=== PATIENT | male | born 1950 | race Two or more races ===

== ENCOUNTER 2023-08-31 11:56 | Inpatient (IN) | payer OTHER ==
[2023-08-31 13:27] LABS: HEMATOCRIT 26.2 % (35.4-49); HEMOGLOBIN 8.7 GM/dL (11.7-16.9); MCH 30.6 pg (25.7-33.7); MCHC 33.3 g/dl (32.0-35.9); MEAN CELL VOLUME 91.9 fl (80-96); MEAN PLT VOLUME 7.2 fl (7.5-11.1); PLATELET COUNT 166 10^3/uL (134-434); RBC 2.85 M/mm3 (4.00-5.60); RDW 17.1 % (11.9-15.9)
[2023-08-31 13:29] LABS: INR 1.26 (0.83-1.09); PROTHROMBIN TIME (PATIENT) 14.1 SEC (9.7-13.0)
[2023-08-31 13:32] LABS: ACTIVATED PTT 32.7 SECONDS (25.2-36.5); WHITE BLOOD COUNT 1.8 K/mm3 (4.0-10.0)
[2023-08-31 13:34] LABS: VENOUS BASE EXCESS 1.4 mmol/L (-2-2); VENOUS O2 SATURATION 19.2 % (70-80); VENOUS PCO2 45.2 mmHg (38-52); VENOUS PH 7.387 (7.310-7.410)
[2023-08-31 13:40] LABS: CHLORIDE 102 mmol/L (98-107); POTASSIUM 4.3 mmol/L (3.5-5.1); SODIUM 137 mmol/L (136-145)
[2023-08-31 13:43] LABS: CALCIUM 8.9 mg/dL (8.5-10.1)
[2023-08-31 13:44] LABS: ALBUMIN 2.5 g/dl (3.4-5.0); ANION GAP 6 mmol/L (4-13); CO2 29 mmol/L (21-32); GLUCOSE,RANDOM 90 mg/dL (74-106)
[2023-08-31 13:47] LABS: CREATININE 5.8 mg/dL (0.55-1.3); SGOT/AST 59 U/L (15-37); SGPT/ALT 23 U/L (13-61)
[2023-08-31 13:48] LABS: BILIRUBIN,TOTAL 0.8 mg/dL (0.2-1)
[2023-08-31 13:49] LABS: TOT PROT 6.1 g/dl (6.4-8.2)
[2023-08-31 13:50] LABS: ALK PHOS 348 U/L (45-117)
[2023-08-31] MEDS ORDERED: PIPERACILLIN/TAZOB 4.5 GM 4.5 GM/100 ML BAG IVPB ONE (14:19)
[2023-08-31] MEDS ORDERED: ACETAMINOPHEN INJECTION 100 ML IVPB ONE (14:19)
[2023-08-31 14:34] LABS: ANISOCYTOSIS 0; MACROCYTOSIS 0
[2023-08-31] MEDS ORDERED: SODIUM CHLORIDE 250 ML IV PRN (16:04)
[2023-08-31] MEDS: SODIUM CHLORIDE 0.9% 500 ML INFUS.BAG IV ONE (16:41)
[2023-08-31] MEDS: AZITHROMYCIN IVPB 500 MG in DEXTROSE 5%-WATER - 250 ML IVPB ONE (16:41)
[2023-08-31] MEDS: PIPERACILLIN/TAZOB 4.5 GM 4.5 GM in DEXTROSE 5%-WATER 100 ML IVPB ONE (16:48)
[2023-08-31] MEDS: ACETAMINOPHEN 1000 MG/100 ML BAG IVPB ONE (16:48)
[2023-08-31] MEDS ORDERED: AZITHROMYCIN IVPB 500 MG/250 ML BAG IVPB ONE (17:26)
[2023-08-31] MEDS ORDERED: VANCOMYCIN 1 GRAM (PRE-DOCKED) 1,000 MG/250 ML BAG IVPB ONE (17:27)
[2023-08-31] MEDS ORDERED: NOREPINEPHRINE 0.9 % NACL 8 MG/250 ML BAG IVPB ONE (17:35)
[2023-08-31] MEDS ORDERED: HYDROCORTISONE SOD SUCCINATE 100 MG/2 ML VIAL ONE (17:47)
[2023-08-31] MEDS: NOREPINEPHRINE 0.9 % NACL 8 MG/250 ML BAG IVPB SCH (17:57)
[2023-08-31] MEDS: VANCOMYCIN/WATER 1250 MG 1,250 MG/250 ML BAG IVPB ONE (17:59)
[2023-08-31] MEDS: HYDROCORTISONE SOD SUCCINATE 100 MG/2 ML VIAL IVPB ONE (18:04)
[2023-08-31] MEDS: NOREPINEPHRINE BITARTRATE 16,000 MCG in SODIUM CHLORIDE 484 ML IV SCH (19:23)
[2023-08-31] MEDS: NOREPINEPHRINE BITARTRATE 4,000 MCG in DEXTROSE 5%-WATER - 496 ML IV SCH ×2 (19:39→19:40)
[2023-08-31] MEDS ORDERED: LIDOCAINE HCL 2% JELLY 6 ML TP ONE (21:19)
[2023-09-01] MEDS: HEPARIN NA (PORCINE) 5,000 UNITS/ML 1ML VIAL SQ SCH ×2 (00:09→05:59)
[2023-09-01] MEDS: PIPERACILLIN/TAZOB 2.25 GM 2.25 GM in DEXTROSE 5%-WATER - 50 ML IVPB SCH (02:00)
[2023-09-01] MEDS ORDERED: NOREPINEPHRINE BITARTRATE 4,000 MCG in DEXTROSE 5%-WATER - 496 ML IV SCH (04:00)
[2023-09-01] MEDS: HYDROCORTISONE SOD SUCCINATE 100 MG/2 ML VIAL IVPB SCH (04:22)
[2023-09-01 07:14] LABS: PHOSPHOROUS 4.2 mg/dL (2.5-4.9)
[2023-09-01] MEDS: PANTOPRAZOLE SODIUM 40 MG VIAL IVPUSH ONE (08:29)
[2023-09-01 09:15] LABS: HEMATOCRIT 24.4 % (35.4-49); HEMOGLOBIN 8.2 GM/dL (11.7-16.9); MCH 30.6 pg (25.7-33.7); MCHC 33.7 g/dl (32.0-35.9); PLATELET COUNT 158 10^3/uL (134-434); RBC 2.68 M/mm3 (4.00-5.60); RDW 16.9 % (11.9-15.9); WHITE BLOOD COUNT 8.7 K/mm3 (4.0-10.0)
[2023-09-01 09:29] LABS: POTASSIUM 5.3 mmol/L (3.5-5.1)
[2023-09-01 09:32] LABS: ALBUMIN 2.1 g/dl (3.4-5.0); CALCIUM 8.5 mg/dL (8.5-10.1)
[2023-09-01 09:33] LABS: BLOOD UREA NITROGEN 42.8 mg/dL (7-18)
[2023-09-01 09:35] LABS: CREATININE 6.7 mg/dL (0.55-1.3)
[2023-09-01 09:37] LABS: BILIRUBIN,TOTAL 1.1 mg/dL (0.2-1); TOT PROT 5.6 g/dl (6.4-8.2)
[2023-09-01] MEDS: PANTOPRAZOLE SODIUM 40 MG VIAL IVPUSH SCH (09:38)
[2023-09-01] MEDS: PIPERACILLIN/TAZOB 4.5 GM 4.5 GM in DEXTROSE 5%-WATER 100 ML IVPB SCH ×2 (09:38→21:30)
[2023-09-01] MEDS: MUPIROCIN 2% TOPICAL OINTMENT FOR DECOLONIZATION NS SCH (09:39)
[2023-09-01] MEDS ORDERED: POLYETHYLENE GLYCOL (HEALTHYLAX) 3350 17 GM PACKET PO SCH (10:00)
[2023-09-01] MEDS ORDERED: PIPERACILLIN/TAZOB 2.25 GM 2.25 GM in DEXTROSE 5%-WATER - 50 ML IVPB SCH (10:00)
[2023-09-01] MEDS ORDERED: PANTOPRAZOLE 40 MG TABLET PO SCH (10:00)
[2023-09-01] MEDS: EPOETIN ALFA-EPBX 10,000 UNIT/ML VIAL IVPUSH ONE (12:12)
[2023-09-01] MEDS: LACTATED RINGERS SOLUTION 1000 ML INFUS.BAG IV ONE (14:54)
[2023-09-01] MEDS: VANCOMYCIN/WATER FOR INJ (PEG) 1,000 MG/200 ML BAG IVPB ONE (17:56)
[2023-09-01] MEDS ORDERED: VANCOMYCIN/WATER FOR INJ (PEG) 1,000 MG/200 ML BAG IVPB SCH (18:00)
[2023-09-01] MEDS ORDERED: HYDROCORTISONE SOD SUCCINATE 100 MG/2 ML VIAL IVPB SCH (21:00)
[2023-09-01] MEDS: CHLORHEXIDINE GLUCONATE 4% CLEANSER FOR DECOLONIZATION TP SCH (21:30)
[2023-09-01] MEDS ORDERED: CHLORHEXIDINE GLUCONATE 4% CLEANSER FOR DECOLONIZATION TP SCH (22:00)
[2023-09-02 08:23] LABS: BASO % 0.5 % (0-2.0); EOS % 7.6 % (0-4.5); HEMOGLOBIN 8.5 GM/dL (11.7-16.9); LYMPH % 7.8 % (8-40); MCH 31.5 pg (25.7-33.7); MEAN CELL VOLUME 92.5 fl (80-96); MEAN PLT VOLUME 8.1 fl (7.5-11.1); MONO % 8.6 % (3.8-10.2); NEUT % 75.5 % (42.8-82.8); PLATELET COUNT 173 10^3/uL (134-434); RDW 17.3 % (11.9-15.9); WHITE BLOOD COUNT 9.3 K/mm3 (4.0-10.0)
[2023-09-02 08:32] LABS: POTASSIUM 4.1 mmol/L (3.5-5.1)
[2023-09-02 08:45] LABS: BLOOD UREA NITROGEN 27.9 mg/dL (7-18)
[2023-09-02 08:47] LABS: ALBUMIN 2.1 g/dl (3.4-5.0); CALCIUM 8.4 mg/dL (8.5-10.1); PHOSPHOROUS 3.6 mg/dL (2.5-4.9); TOT PROT 5.7 g/dl (6.4-8.2)
[2023-09-02 08:49] LABS: CREATININE 4.3 mg/dL (0.55-1.3)
[2023-09-02 08:51] LABS: BILIRUBIN,TOTAL 0.9 mg/dL (0.2-1)
[2023-09-02] MEDS ORDERED: MUPIROCIN 2% TOPICAL OINTMENT FOR DECOLONIZATION NS SCH (10:00)
[2023-09-02] MEDS: ACETAMINOPHEN 325 MG TABLET (FP) PO PRN (10:01)
[2023-09-02] MEDS: APIXABAN 2.5 MG TABLET PO SCH (10:17)
[2023-09-02] MEDS: SODIUM CHLORIDE 1,000 ML IV SCH (10:18)
[2023-09-02 10:33] LABS: URIC ACID 2.6 mg/dL (2.6-7.2)
[2023-09-02] MEDS ORDERED: VANCOMYCIN/WATER FOR INJ (PEG) 1,000 MG/200 ML BAG IVPB SCH (18:00)
[2023-09-03 07:29] LABS: HEMATOCRIT 24.6 % (35.4-49); HEMOGLOBIN 8.1 GM/dL (11.7-16.9); MCH 30.7 pg (25.7-33.7); MCHC 32.9 g/dl (32.0-35.9); MEAN CELL VOLUME 93.2 fl (80-96); MEAN PLT VOLUME 7.7 fl (7.5-11.1); PLATELET COUNT 135 10^3/uL (134-434); RBC 2.64 M/mm3 (4.00-5.60); RDW 17.1 % (11.9-15.9); WHITE BLOOD COUNT 6.2 K/mm3 (4.0-10.0)
[2023-09-03 07:43] LABS: POTASSIUM 3.9 mmol/L (3.5-5.1)
[2023-09-03 07:58] LABS: CALCIUM 8.3 mg/dL (8.5-10.1)
[2023-09-03 07:59] LABS: BLOOD UREA NITROGEN 35.2 mg/dL (7-18)
[2023-09-03 08:02] LABS: CREATININE 5.2 mg/dL (0.55-1.3); PHOSPHOROUS 3.1 mg/dL (2.5-4.9); URIC ACID 3.5 mg/dL (2.6-7.2)
[2023-09-03] MEDS: MIDODRINE HCL 5 MG TABLET PO ONE (11:04)
[2023-09-03] MEDS: MIDODRINE HCL 5 MG TABLET PO SCH (15:59)
[2023-09-04 07:04] LABS: BASO % 0.8 % (0-2.0); EOS % 17.2 % (0-4.5); HEMATOCRIT 24.3 % (35.4-49); HEMOGLOBIN 8.1 GM/dL (11.7-16.9); LYMPH % 16.9 % (8-40); MCH 30.8 pg (25.7-33.7); MCHC 33.4 g/dl (32.0-35.9); MEAN CELL VOLUME 92.2 fl (80-96); MEAN PLT VOLUME 7.9 fl (7.5-11.1); MONO % 8.9 % (3.8-10.2); NEUT % 56.2 % (42.8-82.8); PLATELET COUNT 119 10^3/uL (134-434); RBC 2.64 M/mm3 (4.00-5.60); RDW 17.5 % (11.9-15.9); WHITE BLOOD COUNT 4.2 K/mm3 (4.0-10.0)
[2023-09-04 07:16] LABS: POTASSIUM 4.2 mmol/L (3.5-5.1)
[2023-09-04 07:22] LABS: BLOOD UREA NITROGEN 39.1 mg/dL (7-18); CALCIUM 8.1 mg/dL (8.5-10.1); MAGNESIUM 1.9 mg/dL (1.8-2.4)
[2023-09-04] MEDS ORDERED: SODIUM CHLORIDE 250 ML IV PRN (09:45)
[2023-09-04] MEDS: ALBUMIN HUMAN 25% 12.5 GM/50 ML VIAL IV SCH (10:30)
[2023-09-04] MEDS: EPOETIN ALFA-EPBX 4,000 UNIT/ML VIAL IVPUSH ONE (11:02)
[2023-09-04 13:41] VITALS: BMI 22.2
[2023-09-04] MEDS: SODIUM CHLORIDE 1,000 ML IV SCH (17:39)
[2023-09-04] MEDS: MIDODRINE HCL 5 MG TABLET PO SCH (18:33)
[2023-09-04] MEDS: PIPERACILLIN/TAZOB 4.5 GM 4.5 GM in DEXTROSE 5%-WATER 100 ML IVPB SCH (21:11)
[2023-09-04] MEDS: APIXABAN 2.5 MG TABLET PO SCH (21:11)
[2023-09-05] MEDS: ACETAMINOPHEN 325 MG TABLET (FP) PO PRN (00:48)
[2023-09-05] MEDS ORDERED: PIPERACILLIN/TAZOB 4.5 GM 4.5 GM in DEXTROSE 5%-WATER 100 ML IVPB ONE (22:00)
[2023-09-05] MEDS: PIPERACILLIN/TAZOB 4.5 GM 4.5 GM in DEXTROSE 5%-WATER 100 ML IVPB SCH (22:36)
[2023-09-06] MEDS ORDERED: SODIUM CHLORIDE 250 ML IV PRN (07:02)
[2023-09-06] MEDS ORDERED: ALBUMIN HUMAN 25% 12.5 GM/50 ML VIAL IVPB SCH (07:15)
[2023-09-06 09:41] LABS: BASO % 1.4 % (0-2.0); EOS % 14.3 % (0-4.5); HEMATOCRIT 25.2 % (35.4-49); HEMOGLOBIN 8.4 GM/dL (11.7-16.9); LYMPH % 14.6 % (8-40); MCH 30.5 pg (25.7-33.7); MCHC 33.1 g/dl (32.0-35.9); MEAN PLT VOLUME 7.9 fl (7.5-11.1); NEUT % 58.7 % (42.8-82.8); PLATELET COUNT 97 10^3/uL (134-434); RBC 2.74 M/mm3 (4.00-5.60); RDW 17.7 % (11.9-15.9); WHITE BLOOD COUNT 6.2 K/mm3 (4.0-10.0)
[2023-09-06] MEDS: EPOETIN ALFA-EPBX 4,000 UNIT/ML VIAL SQ ONE (11:23)
[2023-09-06 19:38] VITALS: BP 132/41; PULSE 84; RESP 18; TEMP 99.3
== END 2023-09-06 21:43 | DRG 720 ==
LOC: JER 11:56 → JERBED 16:13 → JICU 21:51 → J5S 09-04 17:15
PROVIDERS: ADMIT Internal Medicine; ATTEND Internal Medicine
PROC: 05HD33Z Insertion of Infusion Device into Right Cephalic Vein, Percutaneous Approach (ICD-10-PCS; principal; 2023-09-03)
PROC: 5A1D70Z Performance of Urinary Filtration, Intermittent, Less than 6 Hours Per Day (ICD-10-PCS; 2023-09-03)
PROC: 5A1D70Z Performance of Urinary Filtration, Intermittent, Less than 6 Hours Per Day (ICD-10-PCS; 2023-09-03)
PROC: 5A1D70Z Performance of Urinary Filtration, Intermittent, Less than 6 Hours Per Day (ICD-10-PCS; 2023-09-03)
DX: A41.89 Other specified sepsis (principal); R65.21 Severe sepsis with septic shock; E03.9 Hypothyroidism, unspecified; J18.9 Pneumonia, unspecified organism; I27.20 Pulmonary hypertension, unspecified; I48.91 Unspecified atrial fibrillation; I13.2 Hypertensive heart and chronic kidney disease with heart failure and with stage 5 chronic kidney disease, or end stage renal disease; N18.6 End stage renal disease; I50.32 Chronic diastolic (congestive) heart failure; Z99.2 Dependence on renal dialysis; K56.690 Other partial intestinal obstruction; M10.9 Gout, unspecified; E27.49 Other adrenocortical insufficiency; I73.89 Other specified peripheral vascular diseases; K40.90 Unilateral inguinal hernia, without obstruction or gangrene, not specified as recurrent; R64 Cachexia; Z68.22 Body mass index [BMI] 22.0-22.9, adult; D63.1 Anemia in chronic kidney disease; R79.89 Other specified abnormal findings of blood chemistry; E44.0 Moderate protein-calorie malnutrition; I24.89 Other forms of acute ischemic heart disease; Z85.528 Personal history of other malignant neoplasm of kidney
CPT/HCPCS: 0241U-QW; 36415; 71045-TC-FY; 74176-TC; 80048; 80053; 82308; 82550; 82803; 82977; 83605; 83735; 84100; 84443; 84484; 84550; 85025; 85027; 85610; 85730; 86140; 86704; 86803; 86850; 86900; 86901; 87040; 87081; 87324; 87340; 87449; 87517; 93005; 93010; 93306-TC; 93971-TC; 94010; 97116-GP; 97161-GP; 99291; G0480; J0131; J1644; P9047; Q5106

== ENCOUNTER 2023-11-20 13:54 | Emergency (ER) | payer OTHER ==
[2023-11-20] MEDS ORDERED: ACETAMINOPHEN INJECTION 100 ML IVPB ONE (14:38)
[2023-11-20] MEDS ORDERED: VANCOMYCIN 1,000 MG in DEXTROSE 5%-WATER - 250 ML IVPB ONE (14:41)
[2023-11-20] MEDS ORDERED: CEFEPIME HCL 1 GM VIAL (RESTRICTED TO ID) IVPB ONE (14:42)
[2023-11-20 14:46] VITALS: RESP 45; TEMP 104.1; BMI 23.5
[2023-11-20] MEDS: ACETAMINOPHEN 1000 MG/100 ML BAG IVPB ONE (15:01)
[2023-11-20] MEDS: SODIUM CHLORIDE 0.9% 1000 ML INFUS.BAG IV STA (15:01)
[2023-11-20 15:07] LABS: VENOUS BASE EXCESS -5.9 mmol/L (-2-2); VENOUS O2 SATURATION 86.1 % (70-80); VENOUS PCO2 55.9 mmHg (38-52); VENOUS PH 7.214 (7.310-7.410)
[2023-11-20 15:16] LABS: INR 1.23 (0.83-1.09); PROTHROMBIN TIME (PATIENT) 14.1 SEC (9.7-13.0)
[2023-11-20 15:19] LABS: ACTIVATED PTT 30.2 SECONDS (25.2-36.5)
[2023-11-20 15:27] LABS: CHLORIDE 99 mmol/L (98-107); HEMATOCRIT 26.2 % (35.4-49); HEMOGLOBIN 8.4 GM/dL (11.7-16.9); MCHC 32.2 g/dl (32.0-35.9); MEAN CELL VOLUME 96.3 fl (80-96); MEAN PLT VOLUME 9.1 fl (7.5-11.1); PLATELET COUNT 221 10^3/uL (134-434); RBC 2.72 M/mm3 (4.00-5.60); RDW 19.7 % (11.9-15.9); SODIUM 134 mmol/L (136-145)
[2023-11-20] MEDS ORDERED: CALCIUM GLUCONATE 10% - 1,000 MG/10 ML VIAL ONE (15:28)
[2023-11-20 15:29] LABS: CALCIUM 7.3 mg/dL (8.5-10.1)
[2023-11-20 15:30] LABS: ALBUMIN 1.5 g/dl (3.4-5.0); BLOOD UREA NITROGEN 65.2 mg/dL (7-18); CO2 22 mmol/L (21-32)
[2023-11-20 15:31] LABS: WHITE BLOOD COUNT 1.5 K/mm3 (4.0-10.0)
[2023-11-20 15:32] LABS: ANION GAP 12 mmol/L (4-13); GLUCOSE,RANDOM 28 mg/dL (74-106); POTASSIUM 6.3 mmol/L (3.5-5.1)
[2023-11-20 15:33] LABS: CREATININE 6.7 mg/dL (0.55-1.3); SGOT/AST 108 U/L (15-37); SGPT/ALT 23 U/L (13-61)
[2023-11-20 15:36] LABS: ALK PHOS 244 U/L (45-117); BILIRUBIN,TOTAL 0.7 mg/dL (0.2-1); TOT PROT 4.7 g/dl (6.4-8.2)
[2023-11-20] MEDS ORDERED: DEXTROSE 50%-WATER 25 GM/50 ML DISP.SYRIN ONE ×2 (15:37→15:40)
[2023-11-20] MEDS ORDERED: NOREPINEPHRINE BITARTRATE/D5W 8 MG/250 ML BAG IVPB ONE (15:51)
[2023-11-20] MEDS: NOREPINEPHRINE BITARTRATE 4,000 MCG in DEXTROSE 5%-WATER - 496 ML IV SCH (16:26)
[2023-11-20] MEDS: DEXTROSE 50%-WATER - 25 GM/50 ML VIAL IVPUSH ONE ×2 (16:26)
[2023-11-20 16:30] LABS: N-TERMINAL BNP 25885.4 pg/ml (5-125)
[2023-11-20 16:32] VITALS: BP 45/32; PULSE 68
[2023-11-20 18:36] LABS: ANISOCYTOSIS 0; MACROCYTOSIS 1+; OVALOCYTE 1+; TEAR DROP CELLS 0
[2023-11-20 18:37] LABS: PLATELET ESTIMATE ADEQUATE
== END 2023-11-20 22:51 | disposition expired ==
LOC: JER 13:54
PROC: 3E033NZ Introduction of Analgesics, Hypnotics, Sedatives into Peripheral Vein, Percutaneous Approach (ICD-10-PCS; principal; 2023-11-20)
PROC: 3E0337Z Introduction of Electrolytic and Water Balance Substance into Peripheral Vein, Percutaneous Approach (ICD-10-PCS; 2023-11-20)
DX: A41.9 Sepsis, unspecified organism (principal); R41.82 Altered mental status, unspecified; R03.1 Nonspecific low blood-pressure reading
CPT/HCPCS: 36415; 71045-TC-FY; 80053; 82803; 82962; 83605; 83880; 84484; 85025; 85610; 85730; 87040; 87186; 93005; 93010; 99291; J0131